=== PATIENT | male | born 1985 | race Two or more races ===

== ENCOUNTER 2020-11-23 09:59 | Emergency (ER) | payer MEDICAID ==
[~2020-11-23] VITALS: Ht 177.8 cm; Wt 96.0 kg
[2020-11-23] MEDS ORDERED: HYDROCODONE/ACETAMINOPHEN 5/325MG TABLET PO ONE (10:15)
[2020-11-23] MEDS: ONDANSETRON 4MG ODT PO ONE ×2 (11:37→11:57)
[2020-11-23] MEDS ORDERED: BACITRACIN ZINC OINT UDPKT TOP ONE (11:45)
[2020-11-23] MEDS ORDERED: ONDANSETRON 4MG ODT PO ONE (11:45)
[2020-11-23 12:56] VITALS: BP 144/87
[2020-11-23] MEDS ORDERED: IBUP-2030 MT (14:11)
[2020-11-23] MEDS ORDERED: TRAM50TA3 MT (14:11)
== END 2020-11-23 14:30 | disposition home or self-care (01) ==
LOC: ER 09:59
DX: S16.1XXA Strain of muscle, fascia and tendon at neck level, initial encounter (principal); S80.211A Abrasion, right knee, initial encounter; S59.801A Other specified injuries of right elbow, initial encounter; S89.81XA Other specified injuries of right lower leg, initial encounter; S50.311A Abrasion of right elbow, initial encounter; V03.90XA Pedestrian on foot injured in collision with car, pick-up truck or van, unspecified whether traffic or nontraffic accident, initial encounter; Y93.89 Activity, other specified; Y92.410 Unspecified street and highway as the place of occurrence of the external cause
CPT/HCPCS: 29505; 72125; 73080; 73130; 73552; 73562; 99284; Q0162